=== PATIENT | male | born 1975 | race Caucasian/White ===

== ENCOUNTER 2020-02-15 00:37 | Observation (INO) | payer OTHER ==
[2020-02-15] MEDS ORDERED: ASPIRIN 81 MG PO STA (00:58)
--- NOTE | 2020-02-15 01:18 | XR ---
EXAMINATION TYPE: XR chest 2V DATE OF EXAM: 02/15/2020 COMPARISON: NONE HISTORY: Chest pain TECHNIQUE: FINDINGS: Heart and mediastinum are normal. Lungs are clear. Diaphragm is normal. Bony thorax appears normal. IMPRESSION: Normal chest.
[2020-02-15 01:24] LABS: Basophils # (A) 0.1 k/uL (0-0.2); Basophils % (A) 1 %; Eosinophils # (A) 0.1 k/uL (0-0.7); Eosinophils % (A) 1 %; HCT 47.5 % (39.0-53.0); HGB 16.1 gm/dL (13.0-17.5); Lymphocytes # (A) 3.5 k/uL (1.0-4.8); Lymphocytes % (A) 35 %; MCH 31.7 pg (25.0-35.0); MCHC 33.9 g/dL (31.0-37.0); MCV 93.4 fL (80.0-100.0); Mean Platelet Volume 8.4; Monocytes # (A) 0.6 k/uL (0-1.0); Monocytes % (A) 6 %; Neutrophils # (A) 5.4 k/uL (1.3-7.7); Neutrophils % (A) 54 %; Platelet Count 206 k/uL (150-450); RBC 5.09 m/uL (4.30-5.90); RDW 12.3 % (11.5-15.5); WBC 9.9 k/uL (3.8-10.6)
[2020-02-15 01:25] LABS: ALT 21 U/L (4-49); AST 24 U/L (17-59); African American GFR (CKD) >90 (>60 ml/min/1.73 sqM); Albumin 4.7 g/dL (3.5-5.0); Alkaline Phosphatase 85 U/L (38-126); Anion Gap 10 mmol/L; Blood Urea Nitrogen 13 mg/dL (9-20); Calcium 9.8 mg/dL (8.4-10.2); Carbon Dioxide 22 mmol/L (22-30); Chloride 103 mmol/L (98-107); Glucose 100 mg/dL (74-99); Magnesium 2.1 mg/dL (1.6-2.3); Non-African American GFR(CKD) >90 (>60 ml/min/1.73 sqM); Sodium 135 mmol/L (137-145); Total Bilirubin 0.5 mg/dL (0.2-1.3); Total Protein 7.4 g/dL (6.3-8.2)
[2020-02-15 01:29] LABS: INR 0.9 (<1.2); Partial Thromboplastin Time 25.7 sec (22.0-30.0); Prothrombin Time 9.8 sec (9.0-12.0)
[2020-02-15] MEDS ORDERED: NITROGLYCERIN SL TABS 0.4 MG TAB SUBLINGUAL PRN (02:06)
--- NOTE | 2020-02-15 02:08 | ED ---
General Adult HPI - General Chief complaint: Chest Pain Stated complaint: chest pain, SOB Time Seen by Provider: 02/15/20 00:52 Source: patient, family Mode of arrival: ambulatory Limitations: no limitations - History of Present Illness Initial comments: 45-year-old male patient presents to the emergency department today for evaluation of left-sided chest discomfort. Patient states the pain started earlier in the day today and has persisted. Patient states he did have some pain, left arm. States that one point he did feel numb. States that the left arm pain has resolved the chest pain persists. He denies any shortness of breath, nausea, or sweats with this. Denies any back pain. Patient does admit to smoking cigars daily. States that he does have a family history of coronary artery disease in his father. Patient states he does not follow with primary care physician. Patient denies any recent rash, fever, chills, cough, abdominal pain, diarrhea, constipation, back pain, numbness, tingling, dizziness, weakness, hematuria, dysuria, urinary urgency, urinary frequency, headache, visual changes, or any other complaints.m - Related Data Previous Rx's Medication Instructions Recorded chlordiazePOXIDE HCl [Librium] 25 mg PO QID PRN #20 capsule 07/14/15 Allergies Allergy/AdvReac Type Severity Reaction Status Date / Time No Known Allergies Allergy Verified 02/15/20 00:44 Review of Systems ROS Statement: Those systems with pertinent positive or pertinent negative responses have been documented in the HPI. ROS Other: All systems not noted in ROS Statement are negative. Past Medical History Additional Past Medical History / Comment(s): alcoholism History of Any Multi-Drug Resistant Organisms: None Reported Past Surgical History: Orthopedic Surgery Past Psychological History: No Psychological Hx Reported Smoking Status: Current every day smoker Past Alcohol Use History: Abuse, Daily Past Drug Use History: None Reported General Exam Limitations: no limitations General appearance: alert, in no apparent distress, other (This is a well- developed, well-nourished adult male patient in no acute distress. Vital signs upon presentation are temperature 98.5F, pulse 85, respirations 18, blood pressure 156/111, pulse ox 98% on room air.) Respiratory exam: Present: normal lung sounds bilaterally. Absent: respiratory distress, wheezes, rales, rhonchi, stridor Cardiovascular Exam: Present: regular rate, normal rhythm, normal heart sounds. Absent: systolic murmur, diastolic murmur, rubs, gallop, clicks GI/Abdominal exam: Present: soft, normal bowel sounds. Absent: distended, tenderness, guarding, rebound, rigid Extremities exam: Present: normal inspection, full ROM, normal capillary refill, other (Skin to the arms is pink, warm, dry. Cap refills less than 3 seconds. Radial pulses 2+ and equal bilaterally to). Absent: tenderness, pedal edema, joint swelling, calf tenderness Neurological exam: Present: alert, oriented X3, CN II-XII intact, other (Strength in all 4 extremities is 5/5.) Psychiatric exam: Present: normal affect, normal mood Skin exam: Present: warm, dry, intact, normal color. Absent: rash Course Vital Signs 02/15/20 02/15/20 00:40 01:42 Temperature 98.5 F Pulse Rate 85 72 Respiratory 18 20 Rate Blood Pressure 156/111 128/98 O2 Sat by Pulse 98 95 Oximetry EKG Findings - EKG Comments: EKG Findings:: EKG obtained at 00 59 shows normal sinus rhythm with sinus arrhythmia. Ventricular rate is 79, MD interval 168, QR jewish 102, QT 368, QTC 421. No evidence of ST elevation or depression. Medical Decision Making - Medical Decision Making 45-year-old male patient presents to the emergency department today for evaluati on of left-sided chest pain left arm discomfort. Physical examination did reveal clear equal lung sounds. Heart sounds are normal. No swelling or tenderness in the legs. EKG showed sinus rhythm with no ST elevation or depression. Chest x-ray was negative. Patient does admit to smoking cigars and has a family history of CAD. He will be admitted to the hospital for serial troponins and further evaluation by cardiology in the morning. I did discuss findings, results, plan with the patient, he is agreeable. - Lab Data Result diagrams: 02/15/20 00:59 02/15/20 00:59 Lab Results 02/15/20 02/15/20 02/15/20 Range/Units 00:59 00:59 00:59 WBC 9.9 (3.8-10.6) k/uL RBC 5.09 (4.30-5.90) m/uL Hgb 16.1 (13.0-17.5) gm/dL Hct 47.5 (39.0-53.0) % MCV 93.4 (80.0-100.0) fL MCH 31.7 (25.0-35.0) pg MCHC 33.9 (31.0-37.0) g/dL RDW 12.3 (11.5-15.5) % Plt Count 206 (150-450) k/uL Neutrophils % 54 % Lymphocytes % 35 % Monocytes % 6 % Eosinophils % 1 % Basophils % 1 % Neutrophils # 5.4 (1.3-7.7) k/uL Lymphocytes # 3.5 (1.0-4.8) k/uL Monocytes # 0.6 (0-1.0) k/uL Eosinophils # 0.1 (0-0.7) k/uL Basophils # 0.1 (0-0.2) k/uL PT 9.8 (9.0-12.0) sec INR 0.9 (<1.2) APTT 25.7 (22.0-30.0) sec Sodium 135 L (137-145) mmol/L Potassium 4.0 (3.5-5.1) mmol/L Chloride 103 (98-107) mmol/L Carbon Dioxide 22 (22-30) mmol/L Anion Gap 10 mmol/L BUN 13 (9-20) mg/dL Creatinine 0.77 (0.66-1.25) mg/dL Est GFR (CKD-EPI)AfAm >90 (>60 ml/min/1.73 sqM) Est GFR (CKD-EPI)NonAf >90 (>60 ml/min/1.73 sqM) Glucose 100 H (74-99) mg/dL Calcium 9.8 (8.4-10.2) mg/dL Magnesium 2.1 (1.6-2.3) mg/dL Total Bilirubin 0.5 (0.2-1.3) mg/dL AST 24 (17-59) U/L ALT 21 (4-49) U/L Alkaline Phosphatase 85 (38-126) U/L Troponin I (0.000-0.034) ng/mL Total Protein 7.4 (6.3-8.2) g/dL Albumin 4.7 (3.5-5.0) g/dL Lipase 474 H (23-300) U/L 02/15/20 Range/Units 00:59 WBC (3.8-10.6) k/uL RBC (4.30-5.90) m/uL Hgb (13.0-17.5) gm/dL Hct (39.0-53.0) % MCV (80.0-100.0) fL MCH (25.0-35.0) pg MCHC (31.0-37.0) g/dL RDW (11.5-15.5) % Plt Count (150-450) k/uL Neutrophils % % Lymphocytes % % Monocytes % % Eosinophils % % Basophils % % Neutrophils # (1.3-7.7) k/uL Lymphocytes # (1.0-4.8) k/uL Monocytes # (0-1.0) k/uL Eosinophils # (0-0.7) k/uL Basophils # (0-0.2) k/uL PT (9.0-12.0) sec INR (<1.2) APTT (22.0-30.0) sec Sodium (137-145) mmol/L Potassium (3.5-5.1) mmol/L Chloride (98-107) mmol/L Carbon Dioxide (22-30) mmol/L Anion Gap mmol/L BUN (9-20) mg/dL Creatinine (0.66-1.25) mg/dL Est GFR (CKD-EPI)AfAm (>60 ml/min/1.73 sqM) Est GFR (CKD-EPI)NonAf (>60 ml/min/1.73 sqM) Glucose (74-99) mg/dL Calcium (8.4-10.2) mg/dL Magnesium (1.6-2.3) mg/dL Total Bilirubin (0.2-1.3) mg/dL AST (17-59) U/L ALT (4-49) U/L Alkaline Phosphatase (38-126) U/L Troponin I <0.012 (0.000-0.034) ng/mL Total Protein (6.3-8.2) g/dL Albumin (3.5-5.0) g/dL Lipase (23-300) U/L - Radiology Data Radiology results: report reviewed, image reviewed Two-view x-ray of the chest is obtained. Report is reviewed in its entirety. Impression by Dr. Corrales shows normal chest. Disposition Clinical Impression: Chest pain Disposition: ADMITTED IP TO THIS [facility] Condition: Serious Referrals: None,Stated [Primary Care Provider] - 1-2 days Decision to Admit Reason: Admit from EC Decision Date: 02/15/20 Decision Time: 02:08
[2020-02-15 03:39] VITALS: TEMP 97.7
[2020-02-15 08:43] VITALS: RESP 16
[2020-02-15] MEDS ORDERED: RX INFO: IV CONTRAST WAS GIVEN 1 EACH MISC MISCELLANE PRN (10:09)
--- NOTE | 2020-02-15 10:21 | P.CRDCN ---
History of Present Illness History of present illness: HISTORY OF PRESENTING ILLNESS This is a pleasant 45-year-old male past medical history significant for chronic nicotine dependence and daily alcohol use. He denies prior history of coronary artery disease and does not follow in the office with radiologist. We have been asked to see in consultation for chest pain. He states yesterday while sitting down working a model he started feeling a discomfort in his chest across from the right to the left and down the left arm. His left arm felt numb. It lasted around an hour or so and the chest pain subsided. However, the left arm numbness persisted throughout the day while at work. 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 He was attempting to drink a bottle of tea and twisted off the cap. He states he didn't even realize the cap had fallen from his hand. He denies shortness of breath, dizziness, palpitations, nausea, vomiting or diaphoresis. DIAGNOSTICS EKG reveals sinus mechanism no acute ST or T wave abnormalities noted. Chest xray negative for an acute cardiopulmonary process. Laboratory reviewed, CBC unremarkable, sodium 135, potassium 4.0, creatinine 0.77, magnesium 2.1, cardiac enzymes negative 3 and lipase 474. He takes no daily cardiac medications REVIEW OF SYSTEMS At the time of my exam: CONSTITUTIONAL: Denies fever or chills. CARDIOVASCULAR: Denies chest pain, shortness of breath, orthopnea, PND or pal pitations. RESPIRATORY: Denies cough. GASTROINTESTINAL: Denies abdominal pain, diarrhea, constipation, nausea or vomiting. MUSCULOSKELETAL: Denies myalgias. NEUROLOGIC: Denies numbness, tingling or weakness. ENDOCRINE: Denies fatigue, weight change, polydipsia or polyurina. GENITOURINARY: Denies burning, hematuria or urgency with micturation. HEMATOLOGIC: Denies history of anemia or bleeding. PHYSICAL EXAMINATION Blood pressure 131/83 heart rate 62 afebrile and maintaining oxygen saturation on room air. CONSTITUTIONAL: No apparent distress. HEENT: Head is normocephalic. Pupils are equal, round. Sclerae anicteric. Mucous membranes of the mouth are moist. No JVD. No carotid bruit. CHEST EXAMINATION: Lungs are clear to auscultation. No chest wall tenderness is noted on palpation or with deep breathing. HEART EXAMINATION: Regular rate and rhythm. S1, S2 heard. No murmurs, gallops or rub. ABDOMEN: Soft, nontender. Positive bowel sounds. EXTREMITIES: 2+ peripheral pulses, no lower extremity edema and no calf tenderness. NEUROLOGIC EXAMINATION: Patient is awake, alert and oriented x3. ASSESSMENT Chest pain, atypical for angina Chronic nicotine dependence Daily alcohol intake PLAN An acute coronary event has been ruled out. Obtain 2D echocardiogram and doppler study to assess cardiac structure and function. Given his story of numbness recommend further assessment of the thoracic aorta for possibility of slow dissection. Also check a cervical spine xray. Smoking and alcohol cessation recommended. Thank you kindly for this consultation. Nurse Practitioner note has been reviewed, I agree with a documented findings and plan of care. Patient was seen and examined. Past Medical History Additional Past Medical History / Comment(s): alcoholism History of Any Multi-Drug Resistant Organisms: None Reported Past Surgical History: Orthopedic Surgery Additional Past Surgical History / Comment(s): pt states his fifth metacarpal was rebuilt. Past Anesthesia/Blood Transfusion Reactions: No Reported Reaction Past Psychological History: No Psychological Hx Reported Smoking Status: Current every day smoker Past Alcohol Use History: Abuse, Daily Past Drug Use History: None Reported Additional Drug Use History / Comment(s): pt states he stopped drinking September of last year but that before that he drank between a pint and a fifth/day. Medications and Allergies Home Medications Medication Instructions Recorded Confirmed Type No Known Home Medications 02/15/20 02/15/20 History Allergies Allergy/AdvReac Type Severity Reaction Status Date / Time No Known Allergies Allergy Verified 02/15/20 07:39 Physical Exam Vitals: Vital Signs Temp Pulse Pulse Resp BP BP Pulse Ox 02/15/20 03:35 97.7 F 62 131/83 96 02/15/20 01:42 72 20 128/98 95 02/15/20 00:40 98.5 F 85 18 156/111 98 Intake and Output 02/14/20 02/15/20 02/15/20 22:59 06:59 14:59 Other: Weight 96.162 kg Results 02/15/20 00:59 02/15/20 00:59 Cardiac Enzymes 02/15/20 02/15/20 02/15/20 Range/Units 00:59 00:59 03:30 AST 24 (17-59) U/L Troponin I <0.012 <0.012 (0.000-0.034) ng/mL 02/15/20 Range/Units 06:05 AST (17-59) U/L Troponin I <0.012 (0.000-0.034) ng/mL Coagulation 02/15/20 Range/Units 00:59 PT 9.8 (9.0-12.0) sec APTT 25.7 (22.0-30.0) sec CBC 02/15/20 Range/Units 00:59 WBC 9.9 (3.8-10.6) k/uL RBC 5.09 (4.30-5.90) m/uL Hgb 16.1 (13.0-17.5) gm/dL Hct 47.5 (39.0-53.0) % Plt Count 206 (150-450) k/uL Comprehensive Metabolic Panel 02/15/20 Range/Units 00:59 Sodium 135 L (137-145) mmol/L Potassium 4.0 (3.5-5.1) mmol/L Chloride 103 (98-107) mmol/L Carbon Dioxide 22 (22-30) mmol/L BUN 13 (9-20) mg/dL Creatinine 0.77 (0.66-1.25) mg/dL Glucose 100 H (74-99) mg/dL Calcium 9.8 (8.4-10.2) mg/dL AST 24 (17-59) U/L ALT 21 (4-49) U/L Alkaline Phosphatase 85 (38-126) U/L Total Protein 7.4 (6.3-8.2) g/dL Albumin 4.7 (3.5-5.0) g/dL Current Medications Generic Name Dose Route Start Last Admin Trade Name Eloina PRN Reason Stop Dose Admin Aspirin 325 mg 02/16/20 09:00 Aspirin PO DAILY PEYTON Nitroglycerin 0.4 mg 02/15/20 02:06 Nitrostat SUBLINGUAL Q5M PRN Chest Pain Intake and Output 02/14/20 02/15/20 02/15/20 22:59 06:59 14:59 Other: Weight 96.162 kg 02/15/20 00:59 02/15/20 00:59
--- NOTE | 2020-02-15 12:11 | P.HPIM ---
History of Present Illness H&P Date: 02/15/20 Chief Complaint: Chest pressure Patient is a 45-year-old male with a known history of ongoing nicotine addiction and daily alcohol use came to ER with complaints of left-sided chest pain/pressure while he was at work yesterday evening. Chest discomfort is mainly in the left retrosternal region and felt tingling sensation down the left arm. [place] like numbness in the left arm. Denied any radiation to the back. Patient says that pain lasted for about an hour and subsided since then. His left-on numbness was present throughout the day which made him presents to the ER. Denied any complaints of associated nausea vomiting or diaphoresis. No abdominal pain. No fever no chills. No cough is from production. Denied any recent illnesses or sick contacts at home. Chest x-ray showed no acute cardio pulmonary process EKG showed normal sinus rhythm with no ST elevation or significant changes. Laboratory data showed WBC 9.9, hemoglobin 16.1, platelets 206 INR 0.9 Sodium 135, potassium 4.0, chloride 103, being 13 and creatinine 0.77 Lipase 474 Troponin 3 negative next elevated insulin not elevated Review of Systems Constitutional: Patient denies any fever or chills . No generalized weakness or weight loss. Abdomen: Patient denied nausea vomiting and diarrhea and abdominal pain. Cardiovascular: Patient denies any chest pain or short of breath no palpitations. Respiratory: patient denied any cough is from production. No shortness of breath Neurologic: Patient denied any numbness or tingling headache. Musculoskeletal: Patient denies any complaints of joint swelling or deformity. Skin: Negative Psychiatric: Negative Endocrine: No heat or cold intolerance. No recent weight gain. Genitourinary: No dysuria or hematuria. All other 14 point ROS negative except the above Past Medical History Additional Past Medical History / Comment(s): alcoholism History of Any Multi-Drug Resistant Organisms: None Reported Past Surgical History: Orthopedic Surgery Additional Past Surgical History / Comment(s): pt states his fifth metacarpal was rebuilt. Past Anesthesia/Blood Transfusion Reactions: No Reported Reaction Past Psychological History: No Psychological Hx Reported Smoking Status: Current every day smoker Past Alcohol Use History: Abuse, Daily Past Drug Use History: None Reported Additional Drug Use History / Comment(s): pt states he stopped drinking September of last year but that before that he drank between a pint and a fifth/day. Medications and Allergies Home Medications Medication Instructions Recorded Confirmed Type No Known Home Medications 02/15/20 02/15/20 History Allergies Allergy/AdvReac Type Severity Reaction Status Date / Time No Known Allergies Allergy Verified 02/15/20 07:39 Physical Exam Vitals: Vital Signs Temp Pulse Pulse Resp BP BP Pulse Ox 02/15/20 08:42 97.7 F 76 16 118/74 96 02/15/20 03:35 97.7 F 62 131/83 96 02/15/20 01:42 72 20 128/98 95 02/15/20 00:40 98.5 F 85 18 156/111 98 Intake and Output 02/14/20 02/15/20 02/15/20 22:59 06:59 14:59 Other: Weight 96.162 kg PHYSICAL EXAMINATION: Patient is lying in the bed comfortably, no acute distress, awake alert and oriented.. HEENT: Normocephalic. Neck is supple. Pupils reactive. Nostrils clear. Oral cavity is moist. Ears reveal no drainage. Neck reveals no JVD, carotid bruits, or thyromegaly. CHEST EXAMINATION: Trachea is central. Symmetrical expansion. Lung grant clear to auscultation and percussion. CARDIAC: Normal S1, S2 with no gallops. No murmurs ABDOMEN: Soft. Bowel sounds normal. No organomegaly. No abdominal bruits. Extremities: reveal no edema. No clubbing or cyanosis Neurologically awake, alert, oriented x3 with well-coordinated movements. No focal deficits noted Skin: No rash or skin lesions. Psychiatric: Coperative. Nonsuicidal Musculoskeletal: No joint swelling or deformity. Normal range of motion. Results CBC & Chem 7: 02/15/20 00:59 02/15/20 00:59 Labs: Abnormal Lab Results - Last 24 Hours (Table) 02/15/20 Range/Units 00:59 Sodium 135 L (137-145) mmol/L Glucose 100 H (74-99) mg/dL Lipase 474 H (23-300) U/L Thrombosis Risk Factor Assmnt - DVT/VTE Prophylaxis DVT/VTE Prophylaxis: Pharmacologic Prophylaxis ordered - Choose All That Apply Each Factor Represents 1 point: Age 41-60 years, Obesity (BMI >25) Thrombosis Risk Factor Assessment Total Risk Factor Score: 2 Thrombosis Risk Factor Assessment Level: Low Risk Assessment and Plan Assessment: Atypical chest pain. Ruled out ACS. Left arm numbness Mild acute pancreatitis with elevated troponin level likely alcohol related Daily alcohol use Ongoing nicotine addiction DVT prophylaxis Obesity with BMI 30.4 Plan: Patient will be continued on telemetry monitoring. Serial EKG and troponin 3 negative. 2-D echocardiogram was ordered to assess for LV function. X-ray of the cervical spine and CT thorax/abdomen and pelvis was ordered to assess for possible slow dissection. Cardiology is following. Smoking cessation and alcohol abstinence has been counseled extensively. Monitor for alcohol withdrawal symptoms. Time with Patient: Greater than 30
--- NOTE | 2020-02-15 14:31 | CT ---
EXAMINATION TYPE: CT angio thor/abd pel aorta DATE OF EXAM: 02/15/2020 COMPARISON: Chest radiograph same day HISTORY: 45-year-old male Chest pain TECHNIQUE: Contiguous axial scanning of the chest, abdomen, and pelvis performed without and with IV Contrast, patient injected with 100 mL of Isovue 370. Coronal/sagittal MIP reconstructions performed. 3-D reconstructions generated on a dedicated independent workstation. CT DLP: 1501.1 mGycm Automated exposure control for dose reduction was used. FINDINGS: CHEST: Heart normal size without pericardial effusion. Aorta normal caliber with bovine configuration to the aortic arch. Initial noncontrast images show no evidence for acute intramural hematoma. No evidence for aortic dissection. No thoracic lymphadenopathy. Lungs show mild emphysematous change and mild diffuse bronchial wall thickening. No consolidation or pleural effusion. Prominent strands of posterior basilar atelectasis. No pleural effusion. ABDOMEN: Arterial phase imaging of the liver, gallbladder, adrenal glands, kidneys, spleen, and pancreas show no gross abnormality. No dilated small bowel, free fluid, or free air. No mesenteric or retroperitoneal lymphadenopathy. Mild stool burden. Sigmoid diverticulosis. No pericolonic inflammatory change. Scattered mild atherosclerotic calcifications infrarenal abdominal aorta and iliac arteries. No aneur ysm is seen. No dissection. PELVIS: Bladder is urine distended. No abnormal fluid collection in the pelvis or pelvic lymphadenopathy. BONES: Mild degenerative spurring at the hips. No osseous destructive process. IMPRESSION: NO EVIDENCE FOR AORTIC ANEURYSM OR DISSECTION. COPD WITH MILD EMPHYSEMA. SIGMOID DIVERTICULOSIS WITHOUT ACUTE DIVERTICULITIS.
[2020-02-15 15:30] VITALS: BP 118/77; PULSE 71
--- NOTE | 2020-02-15 16:49 | XR ---
EXAMINATION TYPE: XR cervical spine comp DATE OF EXAM: 02/15/2020 TECHNIQUE: Frontal, lateral, oblique, and open mouth view of the cervical spine are obtained. HISTORY: left arm numbness COMPARISON: None FINDINGS: The cervical spine is visualized in its entirety from C1 thru the top of T1 level. Normal alignment without evidence of acute fracture or dislocation. Vertebral body heights are normal. There is mild disc space narrowing at C5-C6. There is anterior osteophytic spurring from C4 through C7. Th e pre-vertebral soft tissue appears within normal limits. Neural foramina demonstrate left-sided bony encroachment at C4-C5. The atlantoaxial relationship and base of the dens is within normal limits on the open mouth view. IMPRESSION: 1. No acute fracture or dislocation is seen in the cervical spine. 2. Degenerative changes as above.
[2020-02-16] MEDS ORDERED: ASPIRIN 325 MG TAB PO SCH (09:00)
--- NOTE | 2020-02-27 19:01 | P.DS ---
Providers Date of admission: 02/15/20 02:41 Expected date of discharge: 02/15/20 Attending physician: Flash Hayes Consults: 02/15/20 02:06 Consult Physician Urgent Consulting Provider: [facility] Consult Reason/Comments: Chest Pain; L Arm pain Do you want consulting provider notified?: Yes Primary care physician: Stated None Hospital Course: Discharge Diagnosis Atypical chest pain. Ruled out ACS. Left arm numbness. resolved Mild acute pancreatitis with elevated troponin level likely alcohol related Daily alcohol use Ongoing nicotine addiction DVT prophylaxis Obesity with BMI 30.4 Hospirtasl course. Patient is a 45-year-old male with a known history of ongoing nicotine addiction and daily alcohol use came to ER with complaints of left-sided chest pain/p ressure while he was at work yesterday evening. Chest discomfort is mainly in the left retrosternal region and felt tingling sensation down the left arm. [place] like numbness in the left arm. Denied any radiation to the back. Patient says that pain lasted for about an hour and subsided since then. His left-on numbness was present throughout the day which made him presents to the ER. Denied any complaints of associated nausea vomiting or diaphoresis. No abdominal pain. No fever no chills. No cough is from production. Denied any recent illnesses or sick contacts at home. Chest x-ray showed no acute cardio pulmonary process EKG showed normal sinus rhythm with no ST elevation or significant changes. Laboratory data showed WBC 9.9, hemoglobin 16.1, platelets 206 INR 0.9 Sodium 135, potassium 4.0, chloride 103, being 13 and creatinine 0.77 Lipase 474 Troponin 3 negative next elevated insulin not elevated. Patient was continued on telemetry monitoring. Serial EKG and troponin 3 ne gative. 2-D echocardiogram was ordered to assess for LV function. X-ray of the cervical spine and CT thorax/abdomen and pelvis was ordered to assess for possible slow dissection. Patient had CT of the thoracic aorta showed no evidence of aortic aneurysm or dissection. COPD with mild emphysema. Sigmoid diverticulosis without acute diverticulitis. Due to left arm numbness patient had x-ray of the cervical spine showed no acute fracture or dislocation of the cervical spine. Degenerative changes noted. Currently patient denied any complaints of numbness. Patient was seen by cardio logy. Smoking cessation and alcohol abstinence has been counseled extensively. Monitored for alcohol withdrawal symptoms. Discharge physical examination was done and vitals reviewed. Patient Condition at Discharge: Serious Plan - Discharge Summary Discharge Rx Participant: No New Discharge Prescriptions: New Multivitamins, Thera [Multivitamin (formulary)] 1 tab PO DAILY #30 tablet Thiamine [Vitamin B-1] 100 mg PO DAILY #14 tablet Discharge Medication List Multivitamins, Thera [Multivitamin (formulary)] 1 tab PO DAILY #30 tablet 02/15/20 [Rx] Thiamine [Vitamin B-1] 100 mg PO DAILY #14 tablet 02/15/20 [Rx] Follow up Appointment(s)/Referral(s): Ana Laura Ellison MD [REFERRING] - 1 Week (Please call the office to schedule a 1 week follow up appointment) Patient Instructions/Handouts: Chest Pain (GEN) Discharge Disposition: HOME SELF-CARE
== END 2020-02-15 18:00 | disposition home or self-care (01) ==
LOC: EC 00:37 → 3NCARDOBS 02:41
PROVIDERS: ADMIT Hospitalist; ATTEND Hospitalist
DX: R07.89 Other chest pain (principal); E66.9 Obesity, unspecified; F17.290 Nicotine dependence, other tobacco product, uncomplicated; Z68.30 Body mass index [BMI] 30.0-30.9, adult; K85.90 Acute pancreatitis without necrosis or infection, unspecified; F10.20 Alcohol dependence, uncomplicated; Z82.49 Family history of ischemic heart disease and other diseases of the circulatory system; R20.0 Anesthesia of skin; R79.89 Other specified abnormal findings of blood chemistry
CPT/HCPCS: 99285; 36415; 93005; 80053; 83690; 83735; 84484; 85025; 85610; 85730; 72050; 71046; 71275; 74174; G0378; Q9967